=== PATIENT | male | born 1965 | race African-American/Black ===

== ENCOUNTER → 2020-01-25 | Outpatient (CLI) | payer BC | LOC: LAB 16:22 | PROVIDERS: ATTEND Urology | DX: C61 Malignant neoplasm of prostate (principal) | CPT/HCPCS: G0103 ==

== ENCOUNTER → 2021-08-28 | Outpatient (CLI) | payer BC | LOC: LAB 09:49 | PROVIDERS: ATTEND Urology | DX: C61 Malignant neoplasm of prostate (principal); N45.1 Epididymitis | CPT/HCPCS: 87086; G0103 ==

== ENCOUNTER → 2021-09-08 | Outpatient (CLI) | payer BC ==
[2021-09-08 18:54] LABS: CHOLESTEROL/HDL RATIO 2.4
== END ==
LOC: LAB 09:16
PROVIDERS: ATTEND Nurse Practitioner
DX: E78.00 Pure hypercholesterolemia, unspecified (principal)
CPT/HCPCS: 80061